=== PATIENT | female | born 1950 | race African-American/Black ===

== ENCOUNTER 2018-12-09 07:00 | Day surgery (SDC) | payer OTHER ==
[~2018-12-09] VITALS: Ht 142.2 cm; Wt 51.7 kg
[~2018-12-09 07:00] MED LIST: ALENDRONATE SOD70 MG PO; ATORVASTATIN CA20 MG PO; GABAPENTIN400 MG PO; VITA-BEE WITH1 EACH PO
== END 2018-12-10 09:00 | disposition home or self-care (01) ==
LOC: CIR.AMB 07:00 → OB/GYN 14:26 → O/R 14:26 → CIR.AMB 12-10 09:00 → OB/GYN 12-10 11:44
DX: N95.0 Postmenopausal bleeding (principal); N73.6 Female pelvic peritoneal adhesions (postinfective); R87.820 Cervical low risk human papillomavirus (HPV) DNA test positive